=== PATIENT | male | born 1945 | race Caucasian/White ===

== ENCOUNTER 2020-11-17 10:24 | Day surgery (SDC) | payer MEDICARE, SELFPAY ==
[2020-11-17 10:05] VITALS: BMI 25.2
[2020-11-17 10:31] VITALS: BP 163/73; PULSE 89; RESP 18; TEMP 36.6; O2SAT 97
--- NOTE | 2020-11-17 10:32 | HO.ANESPROP2 ---
HPI - Anesthesia Eval Consult details Narrative: 74 yo male patient here for EGD, Colonoscopy PMFSH Past Medical History Medical History Bladder cancer Diabetes mellitus Gait instability Hyperlipemia Hypertension Hyponatremia Memory deficit PAD (peripheral artery disease) Family History Family history of problems with anesthesia: No Surgical History History of Problems with Anesthesia: No Social History Social History Smoking Status: Never smoker Use of substances other than those prescribed or required for medical reasons: No Have you been hit, kicked, punched, or otherwise hurt by someone within the past year? If so, by whom?: No Advance Directives: No Advance Directives Information Provided: No Advance Directives on File: No Meds Allergies Allergy/AdvReac Type Severity Reaction Status Date / Time No Known Allergies Allergy Verified 11/16/20 10:22 Home Medications Medication Instructions Recorded Confirmed Last Taken Type Januvia 100 mg PO DAILY 11/16/20 11/16/20 Unknown History amlodipine 5 mg PO DAILY 11/16/20 11/16/20 Unknown History aspirin 81 mg PO DAILY 11/16/20 11/17/20 11/10/20 History gabapentin 300 mg PO TID 11/16/20 11/16/20 Unknown History losartan 50 mg PO DAILY 11/16/20 11/17/20 11/17/20 History metformin 1,000 mg PO BID 11/16/20 11/16/20 Unknown History omeprazole 20 mg PO DAILY 11/16/20 11/16/20 Unknown History simvastatin 20 mg PO BEDTIME 11/16/20 11/16/20 Unknown History trospium 20 mg PO BID 11/16/20 11/16/20 Unknown History Exam Exam Date and Time: November 17, 2020 1032 Height,Weight and Vital Signs: Height 5 ft 4 in Weight 66.678 kg Vital Signs Temp Pulse Resp BP Pulse Ox 11/17/20 10:31 98 F 89 18 163/73 H 97 Lab Results 11/17/20 11/17/20 Range/Units 10:38 10:47 POC Hgb (Calc) 12.2 L (14.0-18.0) g/dL POC Hct 36 L (42-52) %PCV POC Std Base Excess 3 (-3-3) mmol/L POC O2 Sat (Calc) TNP POC ABG Total CO2 30 H (24-29) mmol/L POC Capillary pH 7.40 (7.35-7.45) POC Capillary pCO2 46 (35-48) mmhg POC Cap HCO3 (Calc) 28 H (22-26) mmol/L POC Sodium 141 (135-145) mmol/L POC Potassium 4.4 (3.3-5.1) mmol/L POC Glucose 118 H 118 H (60-115) mg/dL Airway Mallampati Class: II TM Dist: >3cm Neck ROM: Limited Heart: RRR Lungs: CTAB Assessment and Plan Assessment Anesthesia Assessment: Anesthesia Plan Discussed and Chart Reviewed Final Anesthetic Review NPO: Yes ASA Class: III Final Preanesthetic Review: No Changes in Pt Med Stat, Meds/Allgs Chart Reviewed, Consent Obtained/Reviewed and Anes Risks/Benef Reviewed Patient Risk: Low Procedure Risk: Low Assessment/Block/Sedation in SS: Assess/Block/Sedation-SS Anesthetic Plan Anesthetic Plan: MAC: Disposition: Standard PACU
[2020-11-17 10:44] LABS: Glucose, Whole Blood 118 mg/dL (60-115)
[2020-11-17] MEDS: Lactated Ringers 1,000 ML 100 ML IVCONT (10:48)
--- NOTE | 2020-11-17 10:55 | MHC.SHP ---
Pre-Procedural Eval Section A The patient is an INPATIENT: No Changes since office visit: No Cold of Flu in the past 2 weeks, No New Medical Problems, No Changes in Medication and No Patient answered all questions The History & Physical has been completed within 30 days and I have reviewed it.: Yes Section B Chief Complaint: abnormal findings digestive system Allergies: Allergies Allergy/AdvReac Type Severity Reaction Status Date / Time No Known Allergies Allergy Verified 11/16/20 10:22 Plan I have reviewed the history and physical and performed a pertinent physical examination on my patient. No changes have occurred unless specified.
[2020-11-17 10:56] LABS: Base Excess Bedside Calculated 3 mmol/L (-3-3); Glucose, i-STAT 118 mg/dL (60-115); HCO3 Bedside Calculated 28 mmol/L (22-26); Hematocrit Bedside 36 %PCV (42-52); Hemoglobin Bedside 12.2 g/dL (14.0-18.0); Potassium Bedside 4.4 mmol/L (3.3-5.1); Sodium Bedside 141 mmol/L (135-145); TCO2 Bedside 30 mmol/L (24-29); pCO2 Bedside 46 mmhg (35-48)
[2020-11-17 11:46] VITALS: BP 139/63; PULSE 79; RESP 16; TEMP 36.6; O2SAT 97
--- NOTE | 2020-11-17 11:47 | PM.OP ---
Brief Operative Note Date of Service: 11/17/20 Pre-op diagnosis: abnl findings gi tract, adenoca unk promary Post-op diagnosis: same (normal egd, colon polyps) Procedure: egd, colon Surgeon: Pito Patrick Anesthesia: MAC Estimated blood loss (mL): 5 Pathology: other (colon polyps) Condition: stable Disposition: PACU
[2020-11-17 12:01] VITALS: BP 120/58; PULSE 71; RESP 17; TEMP 36.6; O2SAT 100
--- NOTE | 2020-11-17 12:38 | P.BOP_ITS ---
Brief Operative Note Date of Service: 11/17/20 Pre-op diagnosis: dysphagia Post-op diagnosis: same Procedure: EGD with PEG placement Implants: 18F traction removable G-tube Surgeon: Pito Patrick Anesthesia: MAC Was an [employer] Electric[employer] used for this Procedure?: No Estimated blood loss (mL): 5 Pathology: none sent Condition: stable Disposition: PACU
--- NOTE | 2020-11-17 13:37 | OP_ITS ---
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 PREOPERATIVE DIAGNOSIS: POSTOPERATIVE DIAGNOSIS: PROCEDURE PERFORMED: Upper endoscopy, colonoscopy with biopsy and snare polypectomy. ESTIMATED BLOOD LOSS: COMPLICATIONS: ANESTHESIA: ASSISTANTS: SPECIMENS: MEDICATIONS: Monitored anesthesia care. DESCRIPTION OF PROCEDURE: History and physical performed. The risks and benefits of the procedure were explained to the patient. Informed consent was obtained. The patient was placed in the left lateral decubitus position. The Olympus video gastroscope was introduced into the esophagus, stomach, and duodenum. Examination was performed and the scope was removed. He was repositioned for colonoscopy. A digital rectal exam was performed and was found to be normal. The Olympus pediatric video colonoscope was introduced into the rectum and advanced to the cecum without difficulty. The cecum was identified by transillumination, palpation, and identification of ileocecal valve. Examination was performed and the scope was removed. He tolerated both procedures well and was taken to recovery area in stable condition. FINDINGS: UPPER ENDOSCOPY: Esophagus: The esophagus was normal. Stomach: The stomach was normal. Duodenum: The bulb and second portion were normal. COLONOSCOPY: The terminal ileum was not examined. The visualized colonic mucosa was within normal limits without evidence of masses or ulcers. In the proximal colon, was a 6 mm polyp, which was removed with a snare. At 90 cm, were 2 less than 5 mm polyps, which were removed with biopsy forceps. In the rectum, were 3 polyps, all less than 10 mm, which were removed with a snare. No mass lesions were identified. Retroflexed examination showed moderate-sized internal hemorrhoids. IMPRESSION: 1. Normal upper endoscopy. 2. Colon polyps. 3. No evidence of GI lesion as cause for adenocarcinoma on liver biopsy. MD CHARIL Kaiser/HELENE / [id number] [facility]
[2020-11-20 15:15] LABS: pO2 Bedside < 50 mmhg (83-108)
== END 2020-11-17 13:10 | disposition home or self-care (01) ==
PROVIDERS: PCP Internal Medicine Geriatric Medicine; Visit Provider Internal Medicine Gastroenterology
PROC: (CPT 45385; principal; 2020-11-17 10:50)
DX: R93.3 Abnormal findings on diagnostic imaging of other parts of digestive tract (principal); D12.3 Benign neoplasm of transverse colon; K62.1 Rectal polyp; E11.9 Type 2 diabetes mellitus without complications; I10 Essential (primary) hypertension; C80.1 Malignant (primary) neoplasm, unspecified; Z85.51 Personal history of malignant neoplasm of bladder; Z79.82 Long term (current) use of aspirin; Z79.84 Long term (current) use of oral hypoglycemic drugs; Z79.899 Other long term (current) drug therapy
CPT/HCPCS: 45385; 45380; 82947; 88305; J3010